=== PATIENT | male | born 1985 | race African-American/Black ===

== ENCOUNTER 2020-03-20 04:03 | Emergency (ER) | payer SELFPAY ==
[2020-03-20] MEDS ORDERED: Fentanyl 100 MCG/2 ML VIAL ONE (04:41)
[2020-03-20] MEDS ORDERED: Midazolam HCl 2 mg/2 ml Vial ONE (04:58)
[2020-03-20] MEDS ORDERED: Propofol 1,000 MG/100 ML VIAL IV ONE (05:16)
[2020-03-20 05:19] LABS: #Basophils 0.3 thou/uL (0.0-0.2); #Eosinphils 0.1 thou/uL (0.0-0.7); #Monocytes 0.9 thou/uL (0.11-0.59); #Neutrophils 6.5 thou/uL (1.40-6.50); %Basophils 2.2 % (0.0-1.0); %Eosinophils 0.9 % (0.0-10.0); %Lymphocytes 34.1 % (21.0-51.0); %Monocytes 7.4 % (0.0-10.0); %Neutrophils 55.5 % (42.0-75.0); Hemoglobin 13.4 g/dL (14.0-18.0); Mean Corpuscular Hemoglobin 29.9 pg (27.0-31.0); Mean Corpuscular Volume 87.8 fL (78.0-98.0); Mean Platelet Volume 7.6 fL (7.4-10.4); Platelet Count 312 thou/uL (130-400); RBC Distribution Width 11.1 % (11.5-14.5); Red Blood Cell (RBC) Count 4.49 mill/uL (4.70-6.10); White Blood Cell (WBC) Count 11.7 thou/uL (4.8-10.8)
[2020-03-20 05:25] LABS: ALT (SGPT) 19 U/L (8-55); AST (SGOT) 25 U/L (5-34); Acetaminophen Less than 6.0 mcg/mL (10.0-30.0); Albumin 3.6 g/dL (3.5-5.0); Alcohol 288 mg/dL (Less than 10); Alkaline Phosphatase 57 U/L (40-110); Anion Gap 13 mmol/L (10-20); BUN (Urea Nitrogen) 13 mg/dL (8.9-20.6); Bilirubin, Total 0.4 mg/dL (0.2-1.2); Calc. Creatinine Clearance 0 mL/min (70-130); Calcium 7.6 mg/dL (7.8-10.44); Carbon Dioxide 20 mmol/L (22-29); Chloride 109 mmol/L (98-107); Globulin 3.2 g/dL (2.4-3.5); Glucose 101 mg/dL (70-105); Potassium 3.6 mmol/L (3.5-5.1); Protein, Total 6.8 g/dL (6.0-8.3); Salicylate Less than 8.0 mg/dL (15.0-30.0); Sodium 138 mmol/L (136-145)
[2020-03-20 05:37] LABS: Bilirubin Negative (Negative); Blood, Urine Trace (Negative); Clarity Clear (Clear); Glucose, Urine (Dipstick) Negative (Negative); Ketone, Urine Negative (Negative); Leukocyte Negative (Negative); Nitrite Negative (Negative); Protein, Urine (Dipstick) Negative (Neg-Trace); Urobilinogen 0.2 mg/dL (Less than 2); pH, Urine 5.5 (5.0-9.0)
[2020-03-20 05:40] LABS: Specific Gravity, Urine 1.003 (1.002-1.036)
[2020-03-20 05:45] LABS: Bacteria/HPF Rare-Few HPF (None Seen); RBC/HPF 0-3 HPF (0-3); Squamous Epithelial 0-3 HPF (0-3); WBC/HPF None Seen HPF (0-3)
[2020-03-20 05:46] LABS: Mucous/LPF None Seen LPF (<2+)
[2020-03-20 05:47] LABS: THC/Cannabinoid Screen Detected (NotDetected)
[2020-03-20 05:48] LABS: Amphetamine Detected (NotDetected); Barbiturates Screen Not Detected (NotDetected); Benzodiazepine Screen Not Detected (NotDetected); Cocaine Metabolite Screen Not Detected (NotDetected); Medtox Control Line Valid? VALID (VALID); Methadone Not Detected (NotDetected); Methamphetamine Detected (NotDetected); Opiate Screen Not Detected (NotDetected); Oxycodone Screen Not Detected (NotDetected); Phencyclidine (PCP) Not Detected (NotDetected); Tricyclic Screen Not Detected (NotDetected)
[2020-03-20 05:53] LABS: CKMB 1.9 ng/mL (0-6.6)
[2020-03-20] MEDS ORDERED: Rocuronium Bromide 10 MG/ML (10ML VIAL) ONE (06:53)
[2020-03-20] MEDS ORDERED: Succinylcholine 200 MG/10 ml SYRINGE FS ONE (06:53)
[2020-03-20] MEDS ORDERED: Ondansetron PF 4 MG/2 ML Vial ONE (06:53)
[2020-03-20] MEDS ORDERED: Sodium Chloride 0.9% 1,000 ML BAG ONE (06:53)
--- NOTE | 2020-03-20 08:19 | RAD ---
CHEST 1 VIEW: Date: 03/20/2020 INDICATION: History to tube placement. COMPARISON: Prior exam dated 10/03/2017. FINDINGS: The patient is heavily rotated to the right, slightly limiting exam. Subtle increase in opacity and v olume of the right lung which may reflect partial volume loss within the right lung. Gastric catheter is unchanged. Left lung is hyperaerated. There is healed deformity of the left mid shaft clavicle. IMPRESSION: Decreased volume and increased opacity of the right lung suspicious for right lung volume loss. Recom mend consideration for suctioning and repeat chest radiograph. POS: BH
[2020-03-20] MEDS ORDERED: EPINEPHrine 1 MG/10 ML Abboject SYRINGE ONE (09:07)
== END 2020-03-20 06:05 | disposition short-term general hospital (02) ==
LOC: MADERS 04:03
DX: T17.918A Gastric contents in respiratory tract, part unspecified causing other injury, initial encounter (principal); J96.00 Acute respiratory failure, unspecified whether with hypoxia or hypercapnia; F10.129 Alcohol abuse with intoxication, unspecified
CPT/HCPCS: 31500; 51702; 71045; 80053; 80306; 80307; 81003; 81015; 82553; 83605; 84484; 85025; 93005; 94760; 96365; 96374; 96375; J0171; J2250; J2405; J2704; J3010; J7050